=== PATIENT | female | born 1985 | race Asian ===

== ENCOUNTER 2018-01-30 13:55 | Outpatient (CLI) | payer BC ==
[2018-01-30 15:06] LABS: Hemoglobin 13.8 g/dL (12.0-16.0); Mean Corpuscular HGB CONC 34.6 g/dL (32.0-36.0); Mean Corpuscular Hemoglobin 28.8 pg (27.0-31.0); Mean Corpuscular Volume 83.3 fL (78.0-98.0); Mean Platelet Volume 6.5 fL (7.4-10.4); Platelet Count 293 thou/uL (130-400); RBC Distribution Width 11.7 % (11.5-14.5); Red Blood Cell (RBC) Count 4.78 mill/uL (4.20-5.40); White Blood Cell (WBC) Count 6.7 thou/uL (4.8-10.8)
[2018-01-30 15:28] LABS: BHCG - Serum Negative (NEGATIVE); Pregs Control Background? CLEAR/WHITE (CLR/WHITE); Pregs Control Bar Appear? YES (CONTROL BAR)
== END 2018-01-30 13:56 | disposition home or self-care (01) ==
LOC: LABBT 13:55
PROVIDERS: ATTEND Obstetrics & Gynecology
DX: Z01.812 Encounter for preprocedural laboratory examination (principal); N83.202 Unspecified ovarian cyst, left side
CPT/HCPCS: 84703; 85027; 86850; 86900; 86901

== ENCOUNTER 2018-02-02 11:50 | Day surgery (SDC) | payer BC ==
[2018-01-30 14:18] VITALS: BMI 28.3
[2018-02-02] MEDS ORDERED: Famotidine/PF 20 mg/2ml Vial ONE (12:53)
[2018-02-02] MEDS ORDERED: Gabapentin 300 MG CAP ONE (12:53)
[2018-02-02] MEDS ORDERED: CeleCOXIB 100 MG CAP ONE (12:53)
[2018-02-02] MEDS ORDERED: Fentanyl 100 MCG/2 ML VIAL ONE ×2 (13:26)
[2018-02-02] MEDS ORDERED: Midazolam HCl 2 mg/2 ml Vial ONE (13:26)
[2018-02-02] MEDS ORDERED: Dexamethasone 20 MG/5 ML VIAL ONE (14:29)
[2018-02-02] MEDS ORDERED: PROPOFOL 200 MG/20 ML VIAL ONE (14:29)
[2018-02-02] MEDS ORDERED: ePHEDrine/0.9% NaCl/PF SYRINGE 50 mg/10 ml ONE (14:29)
[2018-02-02] MEDS ORDERED: Ondansetron PF 4 MG/2 ML Vial ONE (14:29)
[2018-02-02] MEDS ORDERED: SUGAMMADEX SODIUM 200 MG/2 ML VIAL ONE (15:20)
--- NOTE | 2018-02-02 16:50 | OP ---
PREOPERATIVE DIAGNOSES: 1. Persistent left ovarian cyst with suspicion of endometrioma versus hemorrhagic cyst. 2. Pelvic pain. POSTOPERATIVE DIAGNOSES: 1. Left ovarian mass suspicious for fibroadenoma. 2. Pelvic pain. PROCEDURES PERFORMED: 1. Diagnostic laparoscopy. 2. Removal of Left ovarian mass, retaining portion of left ovary. SURGEON: Hilda Nichols D.O. BOARDING [employer] OPERATOR: Darryl Khan D.O. ESTIMATED BLOOD LOSS: 25 mL URINE OUTPUT: 500 mL. ANESTHESIA: General. COMPLICATIONS: None. FINDINGS: Normal external genitalia, normal vaginal and cervical epithelium, normal-appearing uterus, bilateral fallopian tubes and right ovary, left ovary with a persistent 4 cm left ovarian mass suspicious which clinically appears to be a fibroadenoma. INDICATIONS FOR THE PROCEDURE: Ms. Ruth is a 32-year-old G1, P1, who presented to clinic with continued pelvic pain. She had an ultrasound that showed an approximately 4.5 cm left ovarian cyst which was persistent. The patient was counseled on options and desired a diagnostic laparoscopy with a cystectomy. PROCEDURE IN DETAIL: The patient was brought to the operating room. She was placed under general anesthesia. The patient was placed in dorsal lithotomy position using Jimmy stirrups. She was prepped and draped in a sterile fashion. An official timeout was performed. A single site speculum was placed in the vagina. The [email or web address] uterine manipulator was placed. The speculum was removed, gloves were exchanged, and attention was turned to the abdominal portion. An umbilical incision was made and a Veress needle was inserted. The peritoneal cavity was insufflated noting a normal pressure. A 5 mm trocar was placed. The patient was placed in Trendelenburg position, the pelvic anatomy was evaluated, noting the findings above. Journeyman Molder ports were placed and using a 5-mm trocar on both the right and left aspect of the abdomen, both were placed under direct visualization with local anesthesia and an additional 8 mm trocar was also placed using the same technique on the left aspect of the abdomen. The left ovary was evaluated and elevated. An incision was made using monopolar scissors linearly along left ovarian mass in a circumferential fashion. The capsule was then grasped and traction was placed in opposite directions and the fibers around the left ovarian mass connecting to the normal ovarian tissue were both sharply and bluntly dissected until the left ovarian mass was completely freed from the left ovary. The bed of the ovarian tissue was then coagulated using bipolar cautery to create hemostasis. The pelvis was irrigated and cleared of all clot and debris. The left ovarian mass was evaluated what appeared to be more of a fibroadenoma, although was initially thought to be a cyst pre-operatively. The mass was then placed in a 5 mm EndoCatch bag. This was brought up through the incision on the left aspect where the 8 mm trocar was. The incision required extension to approximately 12 mm in size to allow for the products to be removed. The left ovarian mass and the EndoCatch bag removed intact. The Augusto-Valentin was used to close the fascia at this trocar site using 0 Vicryl suture. The pelvis was again thoroughly irrigated and cleared of all clot and debris. The bed of the ovary was evaluated and hemostatic. Tisseel was placed at this site. The patient was taken out of Trendelenburg position. All instruments were removed. The abdomen was deflated and the trocars were removed. The skin was closed using 4- 0 Monocryl and Dermabond. The patient tolerated the procedure well. There were no complications. All counts were correct x2. The details of the surgery were explained to the patient's family. WAN
== END 2018-02-02 17:15 | disposition home or self-care (01) ==
LOC: SDC 11:50
PROVIDERS: ATTEND Obstetrics & Gynecology
PROC: 0UB14ZZ Excision of Left Ovary, Percutaneous Endoscopic Approach (ICD-10-PCS; principal; 2018-02-02)
DX: D27.1 Benign neoplasm of left ovary (principal); F32.9 Major depressive disorder, single episode, unspecified; K58.9 Irritable bowel syndrome, unspecified; E66.3 Overweight; Z68.29 Body mass index [BMI] 29.0-29.9, adult; Z79.84 Long term (current) use of oral hypoglycemic drugs; Z79.899 Other long term (current) drug therapy
CPT/HCPCS: 88307; 96374; J0131; J1100; J2250; J2405; J2704; J3010; S0028